=== PATIENT | male | born 1995 | race Caucasian/White ===

== ENCOUNTER 2017-03-21 07:52 | Emergency (ER) | payer OTHER ==
[~2017-03-21] VITALS: Wt 74.8 kg
[~2017-03-21 07:52] MED LIST: ALEVE220 MG PO; CEPHALEXIN500 M1 PO; CILOXAN 5 ML5 M1 OT; CLARITHROMYCIN500 MG PO; FIORICET 325 MG1 TAB PO; FLEXERIL5 MG PO; HYCODAN,HYDROME10 ML PO; MEDROL DOSEPAK4 MG PO; MOTRIN800 MG PO; NAPROSYN500 MG PO; NORCO 325 MG-51 TAB PO; PARAFON FORTE500 MG PO; PEN-VK500 MG PO; PREDNISONE10 MG PO; PROVENTIL0.09 MG/A1 INH; TYLENOL W/CODEI1 TA2 PO; VENTOLIN H0.09 MG/AC INH; ZYRTEC10 M3 PO; ZYRTEC10 MG PO
[2017-03-21] MEDS ORDERED: NAPROXEN500 MG PO (08:22)
[2017-03-21] MEDS ORDERED: MEDROL DOSEPAK4 MG PO (08:22)
[2017-03-21] MEDS ORDERED: ROBAXIN500 M1 PO (08:22)
[2017-03-21] MEDS ORDERED: LIDODERM 5% PATC1 EA PO (10:13)
[2017-03-21] MEDS ORDERED: TOPICAINE 55% T (10:13)
== END 2017-03-21 10:23 | disposition home or self-care (01) ==
LOC: ED 07:52
DX: S33.5XXA Sprain of ligaments of lumbar spine, initial encounter (principal); M54.16 Radiculopathy, lumbar region; F17.200 Nicotine dependence, unspecified, uncomplicated; X58.XXXA Exposure to other specified factors, initial encounter; Y93.89 Activity, other specified; Y92.89 Other specified places as the place of occurrence of the external cause; Y99.8 Other external cause status

== ENCOUNTER 2018-02-22 01:13 | Emergency (ER) | payer SELFPAY ==
[~2018-02-22] VITALS: Ht 177.8 cm; Wt 88.5 kg
[~2018-02-22 01:13] MED LIST changes: +LIDODERM 5% PATC1 EA PO; +NAPROXEN500 MG PO; +ROBAXIN500 M1 PO; +TOPICAINE 55% T
[2018-02-22] MEDS ORDERED: ANAPROX DS550 MG PO (01:40)
== END 2018-02-22 02:08 | disposition home or self-care (01) ==
LOC: ED 01:13
DX: S80.02XA Contusion of left knee, initial encounter (principal); F10.10 Alcohol abuse, uncomplicated; Z79.899 Other long term (current) drug therapy; W01.0XXA Fall on same level from slipping, tripping and stumbling without subsequent striking against object, initial encounter; Y93.89 Activity, other specified; Y92.89 Other specified places as the place of occurrence of the external cause; Y99.8 Other external cause status

== ENCOUNTER 2018-07-17 00:16 | Emergency (ER) | payer SELFPAY ==
[~2018-07-17] VITALS: Ht 177.8 cm; Wt 88.5 kg
--- NOTE | ~2018-07-17 | EKG ---
[place], [place] ELECTROCARDIOGRAM REPORT NAME: MARGARITO MOHAN UNIT #: [id number] ROOM: DOCTOR: EPIPHANY DRAFT REPORT BIRTHDATE: [birth year] [facility] Test Date: 2018-07-17 Test Time: 03:45:13 Pat Name: MARGARITO MOHAN Department: ER Room: 9 Gender: M Information Technology Program Manager: ZAHIDA : 1995 Requested By: GERALDINE MCELROY Order Number: [id number] Reading MD: Akhil Schultz MD Measurements Intervals [place] Rate: 72 P: [place]: QRS: 27 QRSD: 92 T: 32 QT: 407 QTc: 446 Interpretive Statements Atrial fibrillation No ischemia or infarction Electronically Signed On 07-22-2018 13:45:16 PDT by Akhil Schultz MD CM:EKGRPT:ELECTROCARDIOGRAM REPORT [id number] GERALDINE CHILEL DRAFT REPORT GERALDINE MCELROY DO
--- NOTE | ~2018-07-17 | EKG ---
[place], [place] ELECTROCARDIOGRAM REPORT NAME: MARGARITO MOHAN UNIT #: [id number] ROOM: DOCTOR: EPIPHANY DRAFT REPORT BIRTHDATE: [birth year] [facility] Test Date: 2018-07-17 Test Time: 00:36:56 Pat Name: MARGARITO MOHAN Department: ER Room: 9 Gender: M Beekeeper: Juvenal Acharya : 1995 Requested By: GERALDINE MCELROY Order Number: [id number] Reading MD: Akhil Schultz MD Measurements Intervals [place] Rate: 86 P: 68 [place]: 130 QRS: 29 QRSD: 93 T: 16 QT: 372 QTc: 445 Interpretive Statements Sinus rhythm Non specific ST elevation in chest leads Electronically Signed On 07-22-2018 13:44:43 PDT by Akhil Schultz MD CM:EKGRPT:ELECTROCARDIOGRAM REPORT [id number] GERALDINE CHILEL DRAFT REPORT GERALDINE MCELROY DO
[~2018-07-17 00:16] MED LIST changes: +ANAPROX DS550 MG PO
[2018-07-17 01:01] LABS: BASO % 0.3 % (0.0-1.0); EOS # 0.1 10*3/uL (0.0-0.4); EOS % 0.9 % (1.0-4.0); HEMATOCRIT 43.6 % (42.0-52.0); HEMOGLOBIN 14.9 g/dl (14.0-18.0); LYMPH # 2.1 10*3/uL (1.3-4.4); LYMPH % 20.3 % (27.0-41.0); MEAN CELL VOLUME 91.8 fl (80.0-94.0); MEAN CORPUSCULAR HGB 31.4 pg (27.0-31.0); MEAN CORPUSCULAR HGB CONC 34.2 g/dl (33.0-37.0); MEAN PLATELET VOLUME 8.8 fl (9.6-12.3); MONO # 0.9 10*3/uL (0.1-1.0); MONO % 8.3 % (3.0-9.0); NEUT # 7.4 10*3/uL (2.3-7.9); PLATELET COUNT AUTOMATED 254 10*3/uL (130-400); RED BLOOD COUNT 4.75 10*6/uL (4.50-5.90); RED CELL DISTRI WIDTH 12.3 % (0-14.5); WHITE BLOOD COUNT 10.5 10*3/uL (4.8-10.8)
[2018-07-17 01:10] LABS: INTERNATIONAL NORM RATIO 0.9 (2.0-3.5)
[2018-07-17 01:17] LABS: ALBUMIN 4.3 gm/dl (3.1-4.5); ALKALINE PHOSPHATASE 76 U/L (45-117); BUN 9 mg/dl (7-24); CHLORIDE 105 mmol/L (98-107); CREATININE 0.97 mg/dL (0.70-1.30); POTASSIUM 3.7 mmol/L (3.5-5.1); SGOT/AST 15 IU/L (3-35); SGPT/ALT 26 U/L (12-78); SODIUM 137 mmol/L (136-145); TOTAL PROTEIN 7.9 gm/dL (6.4-8.2)
[2018-07-17 01:21] LABS: TROPONIN I < 0.015 ng/ml (<0.045)
[2018-07-17 01:58] LABS: URINE AMPHETAMINES < 1000 (1000ng/ml); URINE BARBITURATES < 200 (200ng/ml); URINE BENZODIAZEPINES < 200 (200ng/ml); URINE CANNABINOIDS (THC) > 50 (50ng/ml); URINE COCAINE > 300 (300ng/ml); URINE METHADONE < 300 (300ng/ml); URINE OPIATES > 300 (300ng/ml)
[2018-07-17 01:59] LABS: URINE PHENCYCLIDINE < 25 (25ng/ml)
== END 2018-07-17 04:45 | disposition home or self-care (01) ==
LOC: ED 00:16
PROVIDERS: Emergency Medicine
DX: R07.9 Chest pain, unspecified (principal); F19.20 Other psychoactive substance dependence, uncomplicated; F10.10 Alcohol abuse, uncomplicated

== ENCOUNTER 2020-12-23 17:03 | Emergency (ER) | payer SELFPAY ==
[~2020-12-23] VITALS: Ht 177.8 cm; Wt 88.5 kg
[2020-12-23] MEDS ORDERED: HYDROCODONE-AC1 EAC1 PO (23:27)
== END 2020-12-23 23:38 | disposition home or self-care (01) ==
LOC: ED 17:03
DX: S42.401A Unspecified fracture of lower end of right humerus, initial encounter for closed fracture (principal); F32.9 Major depressive disorder, single episode, unspecified; W19.XXXA Unspecified fall, initial encounter; Y93.89 Activity, other specified; Y92.89 Other specified places as the place of occurrence of the external cause; Y99.8 Other external cause status

== ENCOUNTER → 2021-03-24 | Outpatient (CLI) | payer OTHER ==
[~2021-03-24] MED LIST changes: +HYDROCODONE-AC1 EAC1 PO
[2021-03-24 13:25] LABS: MEAN CELL VOLUME 93.4 fl (80.0-94.0); MEAN CORPUSCULAR HGB 30.6 pg (27.0-31.0); MEAN CORPUSCULAR HGB CONC 32.7 g/dl (33.0-37.0); MEAN PLATELET VOLUME 9.5 fl (9.6-12.3); RED BLOOD COUNT 4.71 10*6/uL (4.50-5.90); RED CELL DISTRI WIDTH 12.1 % (0-14.5); WHITE BLOOD COUNT 7.8 10*3/uL (4.8-10.8)
[2021-03-24 13:54] LABS: ALBUMIN 4.1 gm/dl (3.1-4.5); ALKALINE PHOSPHATASE 62 U/L (45-117); BUN 9 mg/dl (7-24); CHLORIDE 108 mmol/L (98-107); CHOLESTEROL 195 mg/dL (<200); CREATININE 1.09 mg/dL (0.70-1.30); LDL CHOLESTEROL 135 mg/dL (9-159); POTASSIUM 5.1 mmol/L (3.5-5.1); SGOT/AST 11 IU/L (3-35); SGPT/ALT 23 U/L (12-78); SODIUM 140 mmol/L (136-145); TOTAL PROTEIN 7.5 gm/dL (6.4-8.2); TRIGLYCERIDES 95 mg/dl (<150)
[2021-03-24 14:17] LABS: VITAMIN D, 25-HYDROXY 24.2 ng/mL (30-100)
== END | disposition home or self-care (01) ==
LOC: LAB 12:52
PROVIDERS: ATTEND Family Medicine
DX: Z13.220 Encounter for screening for lipoid disorders (principal); K21.9 Gastro-esophageal reflux disease without esophagitis; R53.83 Other fatigue; K29.70 Gastritis, unspecified, without bleeding; R05 Cough

== ENCOUNTER → 2021-07-08 | Outpatient (CLI) | payer OTHER | END | disposition home or self-care (01) | LOC: RAD 14:51 | PROVIDERS: ATTEND Family Medicine | DX: M54.32 Sciatica, left side (principal); M54.59 Other low back pain; M25.552 Pain in left hip ==

== ENCOUNTER 2022-06-30 18:36 | Emergency (ER) | payer OTHER ==
[~2022-06-30] VITALS: Ht 177.8 cm; Wt 84.8 kg
== END 2022-06-30 19:41 | disposition home or self-care (01) ==
LOC: ED 18:36
DX: S81.811A Laceration without foreign body, right lower leg, initial encounter (principal); W22.8XXA Striking against or struck by other objects, initial encounter; Y93.89 Activity, other specified; Y92.89 Other specified places as the place of occurrence of the external cause; Y99.8 Other external cause status

== ENCOUNTER → 2022-07-17 | Outpatient (CLI) | payer OTHER | LOC: RAD 14:00 | PROVIDERS: ATTEND Nurse Practitioner Family | DX: R19.4 Change in bowel habit (principal) ==

== ENCOUNTER → 2022-08-23 | Outpatient (CLI) | payer OTHER | END | disposition home or self-care (01) | LOC: RAD 11:56 | PROVIDERS: ATTEND Family Medicine | DX: R06.02 Shortness of breath (principal); R05.9 Cough, unspecified ==

== ENCOUNTER 2022-11-20 04:21 | Emergency (ER) | payer OTHER ==
[2022-11-20] MEDS ORDERED: IBU800 M2 PO (04:53)
[2022-11-20] MEDS ORDERED: CYCLOBENZAPRINE10 MG PO (04:53)
== END 2022-11-20 05:37 | disposition home or self-care (01) ==
LOC: ED 04:21
DX: S61.412A Laceration without foreign body of left hand, initial encounter (principal); S76.012A Strain of muscle, fascia and tendon of left hip, initial encounter; F32.A Depression, unspecified; W31.89XA Contact with other specified machinery, initial encounter; Y93.89 Activity, other specified; Y92.89 Other specified places as the place of occurrence of the external cause; Y99.0 Civilian activity done for income or pay

== ENCOUNTER 2023-07-29 00:42 | Emergency (ER) | payer OTHER ==
[~2023-07-29] VITALS: Ht 175.2 cm; Wt 79.4 kg
[~2023-07-29 00:42] MED LIST changes: +CYCLOBENZAPRINE10 MG PO; +IBU800 M2 PO
== END 2023-07-29 04:07 | disposition home or self-care (01) ==
LOC: ED 00:42
DX: S00.81XA Abrasion of other part of head, initial encounter (principal); S40.812A Abrasion of left upper arm, initial encounter; S40.811A Abrasion of right upper arm, initial encounter; S80.812A Abrasion, left lower leg, initial encounter; S80.811A Abrasion, right lower leg, initial encounter; F32.A Depression, unspecified; Z98.890 Other specified postprocedural states; V29.99XA Rider (driver) (passenger) of other motorcycle injured in unspecified traffic accident, initial encounter; Y93.89 Activity, other specified; Y92.009 Unspecified place in unspecified non-institutional (private) residence as the place of occurrence of the external cause; Y99.8 Other external cause status